=== PATIENT | male | born 1995 | race African-American/Black ===

== ENCOUNTER 2021-08-08 12:13 | Emergency (ER) | payer SELFPAY ==
[2021-08-08] MEDS ORDERED: Ketorolac Tromethamine 30 MG/ML VIAL ONE (13:44)
[2021-08-08] MEDS ORDERED: Ondansetron ODT 4 MG TAB ONE (13:44)
== END 2021-08-08 14:00 | disposition home or self-care (01) ==
LOC: CSHERS 12:13
DX: J06.9 Acute upper respiratory infection, unspecified (principal); M79.10 Myalgia, unspecified site; R11.0 Nausea; F17.210 Nicotine dependence, cigarettes, uncomplicated
CPT/HCPCS: 96372; 99283; J1885; Q0162